=== PATIENT | male | born 1980 | race Caucasian/White ===

== ENCOUNTER 2021-01-16 00:51 | Emergency (ER) | payer BC ==
[2021-01-16 01:12] VITALS: BP 117/76; PULSE 86
--- NOTE | 2021-01-16 01:16 | EDM.PDOC ---
ED HPI GENERAL MEDICAL PROBLEM - General Chief Complaint: Back Pain or Injury Stated Complaint: BACK PAIN Time Seen by Provider: 01/16/21 01:08 - History of Present Illness INITIAL COMMENTS - FREE TEXT/NARRATIVE: 40-year-old male presents the emergency room with back pain. This is been going on for last several days he is not entirely sure exactly what he did to it. Denies any significant trauma or significant back problems in the past he has seen a chiropractor in the past for this episode and prior episodes of back pain however patient denies loss of bowel or bladder control at times he has pain that goes down all the way to his right leg but generally it goes down around his buttock stops before his knees. He has no burning or frequency with urination. He has no abdominal pain nausea vomiting constipation or diarrhea. Patient does not have any breathing difficulties or shortness of breath. Lower back Pain Score (Numeric/FACES): 7 - Related Data Allergies Allergy/AdvReac Type Severity Reaction Status Date / Time No Known Allergies Allergy Verified 01/16/21 01:25 Home Meds: Home Meds Naproxen 500 mg PO BID #20 tablet 01/16/21 [Rx] Orphenadrine [Norflex] 100 mg PO BID PRN #14 tab 01/16/21 [Rx] Past Medical History - Past Health History Medical/Surgical History: Denies Medical/Surgical History ED ROS GENERAL - Review of Systems Review Of Systems: See Below Constitutional: Reports: No Symptoms Respiratory: Reports: No Symptoms Cardiovascular: Reports: No Symptoms GI/Abdominal: Reports: No Symptoms : Reports: No Symptoms Musculoskeletal: Reports: Back Pain Skin: Reports: No Symptoms Neurological: Reports: No Symptoms ED EXAM, GENERAL - Physical Exam Exam: See Below Exam Limited By: No Limitations General Appearance: Alert, No Apparent Distress Head: Atraumatic, Normocephalic Neck: Normal Inspection, Supple, Non-Tender, Full Range of Motion Respiratory/Chest: No Respiratory Distress, Lungs Clear, Normal Breath Sounds Cardiovascular: Regular Rate, Rhythm, No Edema, No Murmur GI/Abdominal: Normal Bowel Sounds, Soft, Non-Tender Back Exam: Muscle Spasm (Minimal muscle spasm in the lower paraspinous musculature), Paraspinal Tenderness. No: CVA Tenderness (L), CVA Tenderness (R), Vertebral Tenderness Extremities: Normal Inspection, No Pedal Edema, Other (Straight leg raises cause muscle tightness at about 75-80 degrees bilaterally no significant radicular symptoms) Neurological: Alert, Oriented, Normal Cognition Course - Vital Signs Last Recorded V/S: Last Vital Signs Temp 36.3 C 01/16/21 01:11 Pulse 86 01/16/21 01:11 Resp 16 01/16/21 01:11 BP 117/76 01/16/21 01:11 Pulse Ox 98 01/16/21 01:11 - Orders/Labs/Meds Meds: Medications Discontinued Medications Generic Name Dose Route Start Last Admin Trade Name Mary PRN Reason Stop Dose Admin Ketorolac Tromethamine 30 mg 01/16/21 01:33 Ketorolac 30 Mg/Ml Sdv IM 01/16/21 01:34 ONETIME ONE Orphenadrine Citrate 100 mg 01/16/21 01:34 Orphenadrine 100 Mg Tab.Er PO 01/16/21 01:35 ONETIME ONE Departure - Departure Time of Disposition: 01:44 Disposition: Home, Self-Care 01 Clinical Impression: Low back pain - Discharge Information Referrals: PCP,None [Primary Care Provider] - Forms: ED Department Discharge, ED Return to Work/School Form Additional Instructions: Return to the emergency room with any questions problems or worsening symptoms. You have been started on 2 medications the first 1 is Naprosyn take it twice daily with your morning and evening meals. Do not use ibuprofen while taking this medication. Second medication is Norflex this is a muscle relaxant you may use it twice daily if needed however you must allow 12 hours after using this medication before driving or returning to work. Do this until you know how it affects you. Sepsis Event Note (ED) - Focused Exam Vital Signs: Vital Signs Temp Pulse Resp BP Pulse Ox 01/16/21 01:11 36.3 C 86 16 117/76 98
[2021-01-16] MEDS ORDERED: Ketorolac 30 MG/ML SDV IM ONE (01:33)
[2021-01-16] MEDS ORDERED: Orphenadrine 100 MG Tab.ER PO ONE (01:34)
== END 2021-01-16 02:25 | disposition home or self-care (01) ==
LOC: JD.ED 00:51
DX: M54.5 Low back pain (principal)
CPT/HCPCS: 96372; 99283; A9270; J1885

== ENCOUNTER 2023-10-07 00:05 | Emergency (ER) | payer BC ==
[2023-10-07] MEDS: Nitroglycerin 0.4 MG Tab.SL SL ONE (00:30)
[2023-10-07] MEDS: Glucagon,Human Recombinant 1 MG Vial IVPUSH ONE (00:30)
[2023-10-07] MEDS: Sodium Chloride 0.9% 1,000 ML IV ONE (01:33)
[2023-10-07 02:19] VITALS: BP 102/71; PULSE 69
== END 2023-10-07 02:48 ==
LOC: JD.ED 00:05
DX: K22.2 Esophageal obstruction (principal); F17.210 Nicotine dependence, cigarettes, uncomplicated
CPT/HCPCS: 71250; 96361; 96374; 99285; A9270; J1610; J7030

== ENCOUNTER 2025-03-17 01:30 | Emergency (ER) | payer OTHER, BC ==
[2025-03-17] MEDS ORDERED: Sodium Chloride 0.9% 10 ML Syringe FLUSH PRN (01:36)
[2025-03-17 01:43] VITALS: BP 144/92; PULSE 74
[2025-03-17 01:48] LABS: BASOPHILS ABSOLUTE AUTO 0.1 K/mm3 (0.0-0.2); BASOPHILS PERCENT AUTO 0.8 % (0.0-1.0); EOSINOPHILS ABSOLUTE AUTO 0.2 K/mm3 (0.0-0.4); EOSINOPHILS PERCENT AUTO 2.7 % (0.0-6.0); IMMATURE GRAN ABSOLUTE AUTO 0.01 K/mm3 (0.00-0.05); IMMATURE GRAN PERCENT AUTO 0.1 % (0.0-0.4); LYMPHOCYTES ABSOLUTE AUTO 2.3 K/mm3 (1.0-4.8); LYMPHOCYTES PERCENT AUTO 26.4 % (24.0-44.0); MEAN PLATELET VOLUME 9.3 fl (9.4-12.4); MONOCYTES ABSOLUTE AUTO 0.6 K/mm3 (0.0-0.8); MONOCYTES PERCENT AUTO 7.1 % (0.0-8.0); NEUTROPHILS ABSOLUTE AUTO 5.4 K/mm3 (1.8-7.7); NEUTROPHILS PERCENT AUTO 62.9 % (41.0-71.0); NRBC ABSOLUTE 0.00 (0.00-0.02); NRBC PERCENT 0.0 % (0.0-0.2); PLATELET COUNT,PLT 353 K/mm3 (150-400); RED BLOOD CELL COUNT 5.73 M/mm3 (4.52-5.90); WHITE BLOOD CELL COUNT,WBC 8.64 K/mm3 (3.9-11.3)
[2025-03-17 02:06] LABS: A/G RATIO 1.2 (1-2); ALANINE AMINOTRANSFERASE,ALT 36.0 U/L (16-63); ASPARTATE AMNIOTRANSFERASE,AST 13.0 U/L (15-37); BILIRUBIN TOTAL 0.4 mg/dL (0.2-1.0); BLOOD UREA NITROGEN,BUN 16.0 mg/dL (7-18); CARBON DIOXIDE,CO2 26.0 mEq/L (21-32); CHLORIDE,CL 103.0 mEq/L (98-107); CREATININE 1.1 mg/dL (0.7-1.3); EST CRCL DRUG DOSING (CG) 93.47 mL/min; ESTIMATED GFR 85.0 mL/min (>60); GLUCOSE RANDOM 116.0 mg/dL (70-99); POTASSIUM,K 3.8 mEq/L (3.5-5.1); PROTEIN TOTAL,TP 7.7 g/dl (6.4-8.2); SODIUM,NA 141.0 mEq/L (136-145)
[2025-03-17] MEDS: Iopamidol 612 MG/ML 100 ML Bottle IVPUSH ONE (02:15)
[2025-03-17 02:17] LABS: ETHANOL BLOOD MEDICAL 0.0 gm% (0.00)
== END 2025-03-17 03:29 | disposition home or self-care (01) ==
LOC: JD.ED 01:30
DX: S16.1XXA Strain of muscle, fascia and tendon at neck level, initial encounter (principal); S29.012A Strain of muscle and tendon of back wall of thorax, initial encounter; F17.200 Nicotine dependence, unspecified, uncomplicated; V40.5XXA Car driver injured in collision with pedestrian or animal in traffic accident, initial encounter; Y93.89 Activity, other specified
CPT/HCPCS: 36415; 70450; 71045; 71260; 72125; 74177; 80053; 80307; 83690; 85025; 99285; Q9967